=== PATIENT | female | born 1945 | race Caucasian/White ===

== ENCOUNTER 2019-12-06 09:48 | Day surgery (SDC) | payer OTHER, BC ==
[2019-11-30 15:42] VITALS: BMI 22.8
[2019-12-06 11:31] VITALS: BP 138/69; PULSE 84; TEMP 98
--- NOTE | 2019-12-08 17:45 | PATH ---
Surgical Pathology Report Patient Name: ANOOP PEREA [facility]. Rec. #: [id number] /Age/Gender: 1945 (Age: 74) / F Account: [id number] Location: [facility] Taken: 12/06/2019 Received: 12/06/2019 Reported: 12/08/2019 Physicians: Han Currie M.D. Specimen(s) Received A: SECOND PORTION DUODENUM B: GASTRIC ANTRUM Clinical History History: GERD, nausea vomiting, abdominal discomfort Final Diagnosis A. DUODENUM, SECOND PORTION, BIOPSY: DUODENAL MUCOSA WITHOUT SIGNIFICANT PATHOLOGIC FINDINGS. B. GASTRIC ANTRUM, BIOPSY: GASTRIC ANTRAL MUCOSA WITH MILD CHRONIC GASTRITIS. IMMUNOHISTOCHEMICAL STAIN FOR H. PYLORI IS NEGATIVE. Positive and negative controls (internal if applicable) show appropriate results. Electronically Signed Noemy Mcdaniels M.D. Gross Description A. Received in formalin, labeled "second portion duodenum" are 2 handley, irregular portions of soft tissue measuring 0.2 and 0.3 cm. in greatest dimension. The specimens are submitted in toto in one cassette. B. Received in formalin, labeled "gastric antrum" are 3 handley, irregular portions of soft tissue measuring 0.2 and 0.3 cm. in greatest dimension. The specimens are submitted in toto in one cassette.
== END 2019-12-06 11:25 | disposition home or self-care (01) ==
LOC: FASU-ENDO 09:48
PROVIDERS: ATTEND Internal Medicine Gastroenterology
PROC: 0DB68ZX Excision of Stomach, Via Natural or Artificial Opening Endoscopic, Diagnostic (ICD-10-PCS; 2019-12-06)
PROC: 0DB98ZX Excision of Duodenum, Via Natural or Artificial Opening Endoscopic, Diagnostic (ICD-10-PCS; principal; 2019-12-06 10:33)
DX: K29.50 Unspecified chronic gastritis without bleeding (principal); R10.12 Left upper quadrant pain; R12 Heartburn
CPT/HCPCS: 88305-TC; 88342-TC

== ENCOUNTER 2020-07-24 09:20 | Day surgery (SDC) | payer OTHER, BC ==
[2020-07-20 12:44] VITALS: BMI 23.7
[2020-07-24 10:40] VITALS: TEMP 97.8
[2020-07-24 11:56] VITALS: BP 128/71; PULSE 78
== END 2020-07-24 11:05 | disposition home or self-care (01) ==
LOC: FASU-ENDO 09:20
PROVIDERS: ATTEND Internal Medicine Gastroenterology
PROC: 0DBC8ZX Excision of Ileocecal Valve, Via Natural or Artificial Opening Endoscopic, Diagnostic (ICD-10-PCS; principal; 2020-07-24 09:50)
DX: Z12.11 Encounter for screening for malignant neoplasm of colon (principal); K63.89 Other specified diseases of intestine; K64.4 Residual hemorrhoidal skin tags; Z88.2 Allergy status to sulfonamides; Z88.8 Allergy status to other drugs, medicaments and biological substances
CPT/HCPCS: 88305-TC